=== PATIENT | female | born 1995 | race Caucasian/White ===

== ENCOUNTER 2017-09-23 22:44 | Emergency (ER) | payer SELFPAY ==
[~2017-09-23] VITALS: Ht 162.6 cm; Wt 78.9 kg
[2017-09-23 22:48] VITALS: BP 122/71
--- NOTE | 2017-09-23 23:08 | Emergency Room Report ---
History of Present Illness General Chief Complaint: Vaginal Source: Patient Present Illness HPI Is a 21-year-old female with no past medical history. She presents with vaginal discharge. Onset for last 3-4 days. Itching and smelly. She had unprotected sex with an ex-boyfriend. She said she found out that he had other partners. She was concerned about an STD. No other complaint. No fever chills but no dysuria frequency. History of STD when she was 17. Allergies: Coded Allergies: No Known Allergies (Unverified , 09/23/17) Patient History Past Medical History: see triage record, old chart reviewed Past Surgical History: none Pertinent Family History: none Social History: Denies: smoking Last Menstrual Period: August 19 Now: No Immunizations: other Reviewed Nursing Documentation: PMH: Agreed; PSxH: Agreed Nursing Documentation-PMH Past Medical History: No Stated History Review of Systems Eye: Denies: eye pain, blurred vision ENT: Denies: ear pain, nose congestion, throat swelling Respiratory: Denies: cough, shortness of breath Cardiovascular: Denies: chest pain, palpitations Gastrointestinal: Denies: abdominal pain, diarrhea, nausea, vomiting Genitourinary: Reports: discharge Musculoskeletal: Denies: back pain, joint pain Skin: Denies: rash Neurological: Denies: headache, numbness Endocrine: Denies: increased thirst, increased urine Hematologic/Lymphatic: Denies: easy bruising All Other Systems: negative except mentioned in HPI Physical Exam Vital Signs Date Time Temp Pulse Resp B/P (MAP) Pulse Ox O2 Delivery O2 Flow Rate FiO2 09/23/17 22:48 98.5 112 18 122/71 100 Room Air 98.4 vitals unremarkable Sp02 EP Interpretation: reviewed, normal General Appearance: well appearing, no apparent distress, alert Head: normocephalic, atraumatic Eyes: bilateral eye PERRL, bilateral eye EOMI ENT: hearing grossly normal, normal pharynx Neck: full range of motion, supple, no meningismus Respiratory: chest non-tender, lungs clear, normal breath sounds Cardiovascular #1: regular rate, rhythm, no murmur Gastrointestinal: normal bowel sounds, non tender, no mass, no organomegaly, no bruit, non-distended Genitourinary: other - 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 External exam normal. Internal exam shows clear discharge. No cervical motion tenderness. No adnexal tenderness. Musculoskeletal: back normal, gait/station normal, normal range of motion Neurologic: alert, oriented x3 Psychiatric: mood/affect normal Skin: warm/dry Medical Decision Making Diagnostic Impression: Primary Impression: Acute cervicitis ER Course Patient presents with a vaginal discharge. This is most likely Chlamydia. No evidence of Trichomonas. No evidence of yeast infection. No . We'll discharge home. Last Vital Signs Date Time Temp Pulse Resp B/P (MAP) Pulse Ox O2 Delivery O2 Flow Rate FiO2 09/23/17 22:48 98.5 112 18 122/71 100 Room Air 98.4 Status: improved Disposition: HOME, SELF-CARE Condition: Stable Additional Instructions: Follow-up with your doctor in 7 days. Return if symptom worsen. Recommend outpatient testing for HIV, hepatitis, syphilis and other STDs. This can be done anonymously. MICHEL SULLIVAN M.D. Sep 23, 2017 23:08
[2017-09-23] MEDS ORDERED: Azithromycin 250mg tab ORAL ONE (23:15)
[2017-09-23] MEDS ORDERED: Lidocaine 1% MPF 10mg/ml 5ml INJ ONE (23:15)
[2017-09-23 23:29] LABS: APPEARANCE,URINE CLEAR; BILIRUBIN, URINE NEGATIVE (NEGATIVE); COLOR,URINE PALE YELLOW; GLUCOSE, URINE (UA) NEGATIVE (NEGATIVE); KETONES,URINE NEGATIVE (NEGATIVE); LEUKOCYTE ESTERASE ,URINE NEGATIVE (NEGATIVE); NITRITE,URINE NEGATIVE (NEGATIVE); PH,URINE 6.5 (4.5-8.0); PROTEIN,URINE NEGATIVE (NEGATIVE); UROBILINOGEN,URINE NORMAL MG/DL (0.0-1.0)
[2017-09-24 00:06] VITALS: BP 0/0
== END 2017-09-24 00:05 | disposition home or self-care (01) ==
LOC: EMR 23:59
DX: N72 Inflammatory disease of cervix uteri (principal)
CPT/HCPCS: 81003; 81025; 87210; 96372; 99283; J0696; 96374